=== PATIENT | male | born 1960 | race Caucasian/White ===

== ENCOUNTER 2018-10-29 10:55 | Day surgery (SDC) | payer BC ==
[~2018-10-29 10:55] MED LIST: Lactated Ringers 1,000 ML IV SCH; Propofol 200 MG/20 ML SDV ONE; Sodium Chloride 0.9% 10 ML Syringe FLUSH PRN
--- NOTE | 2018-10-29 11:44 | PCM.PN ---
- General Info Date of Service: 10/29/18 - Review of Systems Systems Review Comment:: 58-year-old male referred for colonoscopy. He has a recent history of unexplained abdominal pain but also his last colonoscopy was in 2010. He is medically stable to proceed today. His recent history and physical is reviewed and no significant changes are noted. I have discussed the proposed colonoscopy with the patient. Risks such as but not limited to bleeding kath reviewed. He agrees to proceed. - Patient Data Vitals - Most Recent: Last Vital Signs Temp 98.1 F 10/29/18 11:21 Pulse 62 10/29/18 11:21 Resp 20 10/29/18 11:21 BP 139/80 10/29/18 11:21 Pulse Ox 98 10/29/18 11:21 Weight - Most Recent: 70.307 kg Med Orders - Current: Current Medications Lactated Ringer's (Ringers, Lactated) 1,000 mls @ 125 mls/hr IV ASDIRECTED JUAN Sodium Chloride (Saline Flush) 10 ml FLUSH ASDIRECTED PRN PRN Reason: Keep Vein Open Discontinued Medications Propofol (Diprivan 20 Ml) Confirm Administered Dose 200 mg .ROUTE .STK-MED ONE Stop: 10/29/18 08:42 - Problem List Review Problem List Initiated/Reviewed/Updated: Yes - Assessment Assessment:: colon cancer screening - Plan Plan:: colonoscopy
[2018-10-29] MEDS ORDERED: Propofol 200 MG/20 ML SDV ONE (11:45)
--- NOTE | 2018-10-29 12:30 | PCM.OPNOTE ---
- General Post-Op/Procedure Note Date of Surgery/Procedure: 10/29/18 Operative Procedure(s): Colonoscopy with Polypectomy and polyp fulgaration Findings: Multiple left colon polyps Moderate sigmoid diverticulosis Pre Op Diagnosis: Change in bowel habits Post-Op Diagnosis: Colon polyps. Sigmoid Diverticulosis Anesthesia Technique: MAC Primary Surgeon: Ken Izaguirre Pathology: Colon polyp EBL in mLs: 0 Complications: None Condition: Good
--- NOTE | 2018-10-29 18:04 | OR ---
Date of Procedure: 10/29/2018 PREOPERATIVE DIAGNOSIS: Change in bowel habits. POSTOPERATIVE DIAGNOSIS: Colon polyps and sigmoid diverticulosis. OPERATION PERFORMED: Colonoscopy with polypectomy and colon polyp fulguration. INDICATIONS FOR SURGERY: This 58-year-old male has a history of recent unexplained abdominal pain. It has also been several years since his last colonoscopy and he is referred for this exam. FINDINGS: The patient has a moderate degree of sigmoid diverticulosis. In the midportion, there is a mild amount of hyperemia associated with the colon folds. There is no exudate or signs of bleeding. The inflammation is in the area of diverticulosis and is localized to this region. The remainder of the colon does not show any visible signs of inflammation. Multiple polyps were noted during the exam. There are polyps at the splenic flexure and also in the rectum, which were 3 to 4 mm in size, and a polyp in the sigmoid colon 18 cm from the anal verge, which was 8 mm in size. The colon otherwise appeared unremarkable. DESCRIPTION OF PROCEDURE: The patient was taken to the operating room. He was given intravenous sedation and with him in the left lateral decubitus position, digital rectal exam was performed showing no rectal masses. The Olympus colonoscope was inserted into the rectum and retroflexed examination of the rectal canal was performed. The scope was then carefully advanced under direct visualization through the entire length of the colon until the cecum was reached. Cecal acquisition was confirmed by noting the normal internal cecal anatomy including the appendiceal orifice and ileocecal valve and the light was also noted to transilluminate the abdominal wall of the right lower quadrant. After examining the cecum, the scope was slowly withdrawn sequentially re- examining the colonic segments. During insertion and withdrawal of the scope, the above-described polyps were identified and in turn were managed. The two smaller polyps were fulgurated and completely destroyed with cautery. The larger of the three polyps was removed with the cautery snare and retrieved into a polyp trap. After the colon had been completely examined, the scope was removed, and the patient was taken from the operating room in satisfactory condition. ESTIMATED BLOOD LOSS: 0. COMPLICATIONS: None. PROGNOSIS: Good. RADU Izaguirre MD /[id number]
== END 2018-10-29 13:23 | disposition home or self-care (01) ==
LOC: LL.SDS 10:55
PROVIDERS: ATTEND Surgery
DX: D12.5 Benign neoplasm of sigmoid colon (principal); K63.5 Polyp of colon; K62.1 Rectal polyp; K57.30 Diverticulosis of large intestine without perforation or abscess without bleeding; K59.8 Other specified functional intestinal disorders; F17.210 Nicotine dependence, cigarettes, uncomplicated
CPT/HCPCS: 45385; 45388; J2704

== ENCOUNTER 2022-11-21 08:58 | Day surgery (SDC) | payer BC ==
[~2022-11-21 08:58] MED LIST changes: +Bupivacaine 0.5% 10 ML SDV ONE; -Lactated Ringers 1,000 ML IV SCH; -Propofol 200 MG/20 ML SDV ONE; -Sodium Chloride 0.9% 10 ML Syringe FLUSH PRN; +ceFAZolin 1 GM Vial ONE
[2022-11-21] MEDS ORDERED: Lactated Ringers 1,000 ML IV SCH (09:00)
[2022-11-21] MEDS ORDERED: Sodium Chloride 0.9% 10 ML Syringe FLUSH PRN (09:00)
[2022-11-21] MEDS ORDERED: fentaNYL 100 MCG/2 ML SDV ONE (09:08)
[2022-11-21] MEDS ORDERED: Midazolam 1 MG/ML 2 ML SDV ONE (09:08)
[2022-11-21] MEDS ORDERED: Propofol 200 MG/20 ML SDV ONE ×2 (09:09→11:15)
[2022-11-21] MEDS ORDERED: Ketorolac 30 MG/ML SDV ONE (11:15)
[2022-11-21] MEDS ORDERED: Ondansetron 4 MG/2 ML SDV ONE (11:15)
[2022-11-21] MEDS ORDERED: Bupivacaine 0.5%/EPINEPHrine 1:200,000 30 ML SDV INFILT ONE (11:46)
[2022-11-21] MEDS ORDERED: ceFAZolin 1 GM Vial ONE (11:50)
== END 2022-11-21 13:40 | disposition home or self-care (01) ==
LOC: LL.SDS 08:58
PROVIDERS: ATTEND Surgery
DX: K40.90 Unilateral inguinal hernia, without obstruction or gangrene, not specified as recurrent (principal); F17.210 Nicotine dependence, cigarettes, uncomplicated
CPT/HCPCS: 00830; C1781; J0690; J1885; J2405; J2704; J3010; J3490; J7120

== ENCOUNTER 2023-01-02 09:03 | Day surgery (SDC) | payer BC ==
[~2023-01-02 09:03] MED LIST changes: -Bupivacaine 0.5% 10 ML SDV ONE; +Midazolam 1 MG/ML 2 ML SDV ONE; +Propofol 200 MG/20 ML SDV ONE; -ceFAZolin 1 GM Vial ONE
[2023-01-02] MEDS ORDERED: Sodium Chloride 0.9% 10 ML Syringe FLUSH PRN (09:15)
[2023-01-02] MEDS ORDERED: Lactated Ringers 1,000 ML IV SCH (09:15)
[2023-01-02] MEDS ORDERED: Glycopyrrolate 0.2 MG/ML SDV IVPUSH ONE (10:45)
[2023-01-02] MEDS ORDERED: Propofol 200 MG/20 ML SDV IV ONE (10:45)
== END 2023-01-02 12:30 | disposition home or self-care (01) ==
LOC: LL.SDS 09:03
PROVIDERS: ATTEND Surgery
DX: Z12.11 Encounter for screening for malignant neoplasm of colon (principal); D12.0 Benign neoplasm of cecum; D12.5 Benign neoplasm of sigmoid colon; K57.30 Diverticulosis of large intestine without perforation or abscess without bleeding; K64.8 Other hemorrhoids; F17.210 Nicotine dependence, cigarettes, uncomplicated; Z98.890 Other specified postprocedural states
CPT/HCPCS: 00812; J2250; J2704; J7120